=== PATIENT | male | born 1990 | race Caucasian/White ===

== ENCOUNTER 2019-07-04 21:51 | Emergency (ER) | payer OTHER ==
[~2019-07-04] VITALS: Ht 182.9 cm; Wt 70.3 kg
--- NOTE | 2019-07-04 22:02 | NUR ---
PT BIBSELF C/O R HAND LACERATION WHILE WASHING WINE GLASS. UNK TDAP. PT AOX4. RESP EVEN AND UNLABORED. PT ON MONITOR IN BED 4 WITH FRIEND AT BEDSIDE. WILL CONTINUE TO MONITOR.
--- NOTE | 2019-07-04 22:39 | NUR ---
RADIOLOGY AT BEDSIDE FOR XRAY
[2019-07-04] MEDS ORDERED: KETOROLAC TROMETHAMINE INJ 60 MG/2 ML VIAL IM ONE ×2 (22:40→23:00)
[2019-07-04] MEDS ORDERED: LIDOCAINE 1%-EPI 1:100,000 20 ML VIAL ONE (22:40)
[2019-07-04] MEDS ORDERED: TDAP [DIPH/PERTUSSIS/TET] 0.5 ML VIAL IM ONE ×2 (22:40→23:00)
[2019-07-05] MEDS ORDERED: oxyCODONE/APAP (5/325 MG) 1 UDTAB TABLET PO ONE
[2019-07-05] MEDS ORDERED: oxyCODONE/APAP (5/325 MG) 1 UDTAB TABLET ONE (00:01)
--- NOTE | 2019-07-05 00:58 | NUR ---
RADIOLOGY AT BEDSIDE FOR XRAY
--- NOTE | 2019-07-05 01:28 | NUR ---
PT RESTING IN BED EATING FOOD BROUGHT BY FRIENDS.
[2019-07-05 01:43] VITALS: BP 117/76
--- NOTE | 2019-07-05 02:15 | NUR ---
Patient discharged to home in stable condition. Written and verbal after care instructions given. Patient verbalizes understanding of instruction.
== END 2019-07-05 02:32 | disposition home or self-care (01) ==
LOC: ER 21:53
DX: S61.421A Laceration with foreign body of right hand, initial encounter (principal); W25.XXXA Contact with sharp glass, initial encounter; Y93.G1 Activity, food preparation and clean up; Y92.89 Other specified places as the place of occurrence of the external cause; Y99.8 Other external cause status
CPT/HCPCS: 73130 ×3; 90471; 90715; 96372; 99284; A6403; J1885; J3490